=== PATIENT | male | born 1970 | race Caucasian/White ===

== ENCOUNTER 2017-04-19 14:08 | Emergency (ER) | payer MEDICARE ==
[2017-04-19] MEDS ORDERED: ELIMITE60 G1 TP (15:04)
[2017-04-19] MEDS ORDERED: BENADRYL PO (15:04)
[2017-04-19 15:24] VITALS: BP 151/96
== END 2017-04-19 15:24 | disposition home or self-care (01) ==
LOC: ED 14:08
DX: R21 Rash and other nonspecific skin eruption (principal); L29.9 Pruritus, unspecified; G80.9 Cerebral palsy, unspecified